=== PATIENT | male | born 1985 | race African-American/Black ===

== ENCOUNTER 2017-04-23 17:36 | Emergency (ER) | payer SELFPAY ==
[~2017-04-23] VITALS: Ht 170.2 cm; Wt 99.8 kg
--- NOTE | 2017-04-23 18:00 | PHYS DOC ---
Past Medical History Past Medical History: No Pertinent History Past Surgical History: No Surgical History Alcohol Use: Occasionally Drug Use: None Adult General Chief Complaint Chief Complaint: DIZZY/LIGHT HEADED HPI HPI Patient is a 32 year old AA male who presents dizziness and lightheadedness today while at work. Symptoms are worse with exertion and walking. They're relieved with sitting. Denies headache, blurred vision, chest pain, palpitations , shortness of breath, increased leg pain and swelling. No fever chills, abdominal constipation diarrhea. No bloody stools or dark tarry stools. No other acute symptoms or complaints. No chronic medical problems. Patient denies alcohol and drug use. He smokes daily cigarettes. [] Review of Systems Review of Systems Review symptoms as per history of present illness. All other symptoms are negative. Current Medications Current Medications Current Medications Medications (Trade) Dose Ordered Sig/Neftali Start Time Stop Time Status Last Admin Dose Admin Info (Do NOT chart on this entry -- for MONITORING) 1 each PRN DAILY PRN 04/23/17 20:15 04/25/17 20:14 Iohexol (Omnipaque 300 Mg/ml) 75 ml 1X ONCE 04/23/17 20:00 04/23/17 20:01 DC 04/23/17 20:18 75 ML Allergies Allergies Allergies Coded Allergies Type Severity Reaction Last Updated Verified No Known Drug Allergies 04/23/17 No Physical Exam Physical Exam Constitutional: Well developed, well nourished, no acute distress, non-toxic appearance. [] HENT: Normocephalic, atraumatic, bilateral external ears normal, oropharynx moist, no oral exudates, nose normal. [] Eyes: PERRLA, EOMI, conjunctiva normal, no discharge. [] Neck: Normal range of motion. [] Cardiovascular:Heart rate regular rhythm, no murmur [] Lungs & Thorax: Bilateral breath sounds clear to auscultation [] Abdomen: Bowel sounds normal, soft, no tenderness, no masses, no pulsatile masses. [] Skin: Warm, dry, no erythema. [] Back: No tenderness. [] Extremities: No tenderness. [] Neurologic: Alert and oriented X 3, normal motor function, normal sensory function, no focal deficits noted. [] Psychologic: Affect normal, judgement normal, mood normal. [] Current Patient Data Vital Signs Vital Signs Date Time Temp Pulse Resp B/P (MAP) Pulse Ox O2 Delivery O2 Flow Rate FiO2 04/23/17 18:44 88 18 97 04/23/17 17:45 98.0 162/95 (117) Room Air 98.0 Lab Values Laboratory Tests Test 04/23/17 18:00 04/23/17 18:25 Glucose (Fingerstick) 131 mg/dL (70-99) H White Blood Count 7.9 x10^3/uL (4.0-11.0) Red Blood Count 6.17 x10^6/uL (4.30-5.70) H Hemoglobin 14.7 g/dL (13.0-17.5) Hematocrit 46.2 % (39.0-53.0) Mean Corpuscular Volume 75 fL (79-100) L Mean Corpuscular Hemoglobin 24 pg (25-35) L Mean Corpuscular Hemoglobin Concent 32 g/dL (31-37) Red Cell Distribution Width 15.2 % (11.5-14.5) H Platelet Count 169 x10^3/uL (140-400) Neutrophils (%) (Auto) 76 % (31-73) H Lymphocytes (%) (Auto) 19 % (24-48) L Monocytes (%) (Auto) 3 % (0-9) Eosinophils (%) (Auto) 1 % (0-3) Basophils (%) (Auto) 1 % (0-3) Neutrophils # (Auto) 6.0 x10^3uL (1.8-7.7) Lymphocytes # (Auto) 1.5 x10^3/uL (1.0-4.8) Monocytes # (Auto) 0.3 x10^3/uL (0.0-1.1) Eosinophils # (Auto) 0.1 x10^3/uL (0.0-0.7) Basophils # (Auto) 0.1 x10^3/uL (0.0-0.2) D-Dimer (Meghan) 1.04 ug/mlFEU (0.00-0.50) H Sodium Level 139 mmol/L (136-145) Potassium Level 3.4 mmol/L (3.5-5.1) L Chloride Level 102 mmol/L (98-107) Carbon Dioxide Level 27 mmol/L (21-32) Anion Gap 10 (6-14) Blood Urea Nitrogen 9 mg/dL (8-26) Creatinine 1.1 mg/dL (0.7-1.3) Estimated GFR (Cockcroft-Gault) 94.5 BUN/Creatinine Ratio 8 (6-20) Glucose Level 123 mg/dL (70-99) H Calcium Level 9.5 mg/dL (8.5-10.1) Total Bilirubin 0.4 mg/dL (0.2-1.0) Aspartate Amino Transferase (AST) 21 U/L (15-37) Alanine Aminotransferase (ALT) 39 U/L (16-63) Alkaline Phosphatase 75 U/L (46-116) Total Protein 7.4 g/dL (6.4-8.2) Albumin 4.1 g/dL (3.4-5.0) Albumin/Globulin Ratio 1.2 (1.0-1.7) Thyroid Stimulating Hormone (TSH) 1.022 uIU/mL (0.358-3.74) Laboratory Tests 04/23/17 18:25 Laboratory Tests 04/23/17 18:25 EKG EKG [EKG: Sinus rhythm, occasional PVC, rate 96, no acute ST-T wave changes.] Radiology/Procedures Radiology/Procedures [CTA chest: No evidence of pulmonary embolus per radiology report.] Course & Med Decision Making Course & Med Decision Making Pertinent Labs and Imaging studies reviewed. (See chart for details) [Patient with nonspecific dizziness. No neurologic deficits on exam. D-dimer is elevated. CT chest is negative. Recommends discharge home, watchful waiting, close PCP follow-up. Return precautions reviewed. Patient verbalizes understanding agreement with discharge instructions prior to departure.] Dragon Disclaimer Dragon Disclaimer This electronic medical record was generated, in whole or in part, using a voice recognition dictation system. Departure Departure Impression: Primary Impression: Dizziness Disposition: 01 HOME, SELF-CARE Condition: GOOD Referrals: NO PCP (PCP) Patient Instructions: Dizziness, [id number] Additional Instructions: You were evaluated in the emergency department for dizziness. EKG, lab work and CT chest were obtained and are normal. The cause of your symptoms has not been determined. Please go home and rest and follow-up with her primary care physician in the next 2-3 days for reevaluation. The meantime, if you develop new or worsening symptoms, please return to the emergency department. LUIS CANSECO DO Apr 23, 2017 18:00
[2017-04-23 18:38] LABS: BASO # 0.1 x10^3/uL (0.0-0.2); BASO % 1 % (0-3); EOS % 1 % (0-3); HEMATOCRIT 46.2 % (39.0-53.0); HEMOGLOBIN 14.7 g/dL (13.0-17.5); LYMPH # 1.5 x10^3/uL (1.0-4.8); LYMPH % 19 % (24-48); MEAN CORPUSCULAR HEMOGLOBIN 24 pg (25-35); MEAN CORPUSCULAR HGB CONC 32 g/dL (31-37); MEAN CORPUSCULAR VOLUME 75 fL (79-100); MONO % 3 % (0-9); NEUT % 76 % (31-73); PLATELET COUNT 169 x10^3/uL (140-400); RED BLOOD COUNT 6.17 x10^6/uL (4.30-5.70); RED CELL DISTRIBUTION WIDTH 15.2 % (11.5-14.5); WHITE BLOOD COUNT 7.9 x10^3/uL (4.0-11.0)
[2017-04-23 18:44] VITALS: BP 127/70
[2017-04-23 18:48] LABS: CALCIUM 9.5 mg/dL (8.5-10.1); CREATININE 1.1 mg/dL (0.7-1.3); GFR 94.5; POTASSIUM 3.4 mmol/L (3.5-5.1)
--- NOTE | 2017-04-23 18:53 | EKG ---
[facility] [address] [place] [address] Test Date: 2017-04-23 Test Time: 17:50:47 Pat Name: MIKA SANDERS Department: Room: Gender: M Online [employer]: : 1985 Requested By: LUIS CANSECO Order Number: [id number] Reading MD: Demetrice Cross Measurements Intervals [place] Rate: 96 P: 31 ME: 156 QRS: 15 QRSD: 96 T: 18 QT: 350 QTc: 443 Interpretive Statements SINUS RHYTHM VENTRICULAR PREMATURE COMPLEX(ES) ABNORMAL ECG Electronically Signed On 04-27-2017 12:18:09 CDT by Demetrice Cross
[2017-04-23 18:54] LABS: ALBUMIN 4.1 g/dL (3.4-5.0); ALBUMIN/GLOBULIN RATIO 1.2 (1.0-1.7); TOTAL BILIRUBIN 0.4 mg/dL (0.2-1.0); TOTAL PROTEIN 7.4 g/dL (6.4-8.2)
[2017-04-23] MEDS ORDERED: IOHEXOL 300 MG/ML 75 ML VIAL IV ONE (20:00)
[2017-04-23] MEDS ORDERED: CONTRAST GIVEN MC PRN (20:15)
--- NOTE | 2017-04-23 20:34 | RAD ---
CTA scan of the Chest with Contrast (Pulmonary Embolism protocol) 04/23/2017 Clinical History: Elevated d-dimer. Technique: After the intravenous administration of 75 cc of Isovue-370, contiguous, 0.625 mm axial sections were obtained through the chest. 2.5 mm axial and 3D MIP coronal reconstructed images were obtained. One or more of the following individualized dose reduction techniques were utilized for this study: 1. Automated exposure control. 2. Adjustment of the mA and/or kV according to patient size. 3. Use of iterative reconstruction technique. Findings: No filling defect is seen within the major branches of either pulmonary artery. There is no CT evidence of pulmonary embolism. The heart and thoracic aorta are within normal limits. Minimal dependent subsegmental atelectasis is seen involving both lungs. No pulmonary infiltrate, pleural effusion or pneumothorax is seen. Mild emphysematous changes are seen involving right upper lobe. Impression: There is no CT evidence of pulmonary embolism. Electronically signed by: Alejandro James MD (04/23/2017 8:31 PM) [employer]
== END 2017-04-23 20:59 | disposition home or self-care (01) ==
LOC: ER 17:36
DX: R42 Dizziness and giddiness (principal); F17.210 Nicotine dependence, cigarettes, uncomplicated
CPT/HCPCS: 36415; 71275; 80053; 82962; 84443; 85025; 85379; 93005; 99285; Q9967